=== PATIENT | female | born 1995 | race Caucasian/White ===

== ENCOUNTER 2021-04-25 07:06 | Inpatient (IN) | payer OTHER ==
[2021-04-25 07:57] VITALS: BMI 40.8
[2021-04-25] MEDS: Lactated Ringer's 1,000 ML IV SCH ×2 (08:10→09:57)
[2021-04-25] MEDS ORDERED: Butorphanol Tartrate 1 MG/ML VIAL SLOW IVP PRN (08:26)
[2021-04-25] MEDS ORDERED: hydrALAZINE 20 MG/ML VIAL SLOW IVP PRN ×3 (08:26→15:39)
[2021-04-25] MEDS ORDERED: Ondansetron PF 4 MG/2 ML Vial IVP PRN ×2 (08:26→15:38)
[2021-04-25] MEDS ORDERED: Lidocaine 1% (PF) 30 ML VIAL SC PRN (08:28)
[2021-04-25] MEDS ORDERED: Ibuprofen 800 MG TAB PO PRN (08:28)
[2021-04-25] MEDS ORDERED: HYDROcodone/Acetaminophen 5/325 mg Tablet PO PRN ×3 (08:28→15:38)
[2021-04-25] MEDS ORDERED: Butorphanol Tartrate 1 MG/ML VIAL ONE (08:29)
[2021-04-25] MEDS ORDERED: Lactated Ringer's 1,000 ML IV SCH (08:30)
[2021-04-25] MEDS ORDERED: NS w/ Oxytocin 30 units 500 ML IV SCH ×2 (08:30→15:45)
[2021-04-25] MEDS ORDERED: Fentanyl 2 mcg/Bup 0.1% Cadd 100 ML ONE (08:51)
[2021-04-25 08:56] LABS: Hemoglobin 11.5 g/dL (12.0-15.5); Mean Corpuscular HGB CONC 32.4 g/dL (32.0-36.0); Mean Corpuscular Hemoglobin 28.6 pg (27.0-33.0); Mean Corpuscular Volume 88.3 fl (81.6-98.3); Mean Platelet Volume 10.7 fl (7.4-10.4); Platelet Count 183 10x3/uL (150-450); RBC Distribution Width 13.7 % (11.5-14.5); Red Blood Cell (RBC) Count 4.02 10x6/uL (3.90-5.03); White Blood Cell (WBC) Count 10.3 10x3/uL (3.5-10.5)
[2021-04-25 09:28] LABS: Fetal Membranes Rupture RUPTURE DETECTED (No Rupture)
[2021-04-25 09:36] LABS: Hep B Surf Ag Non-Reactive S/CO (NonReactive); Syphilis Antibody Nonreactive (Nonreactive); Syphilis Antibody Index 0.04 S/CO (<1.00 Non-Reactive)
[2021-04-25 09:38] LABS: HBSAg Index 0.16 S/CO (0-0.99)
[2021-04-25] MEDS ORDERED: Methylergonovine 0.2 MG/ML VIAL ONE (11:50)
[2021-04-25] MEDS ORDERED: Misoprostol 200 MCG TAB ONE (11:50)
[2021-04-25] MEDS ORDERED: Carboprost 250 MCG/ML AMP ONE (11:50)
[2021-04-25] MEDS ORDERED: Bisacodyl 10 MG SUPP PR PRN ×2 (15:38→15:39)
[2021-04-25] MEDS ORDERED: Lanolin Ointment 7 GM TUBE TOP PRN (15:38)
[2021-04-25] MEDS ORDERED: Promethazine HCl 25 MG/ML VIAL IM PRN (15:38)
[2021-04-25] MEDS ORDERED: Boostrix 0.5 ML (Tdap) VIAL IM ONE (15:38)
[2021-04-25] MEDS ORDERED: diphenhydrAMINE 25 MG CAP PO PRN (15:38)
[2021-04-25] MEDS ORDERED: Misoprostol 200 MCG TAB VAG PRN (15:38)
[2021-04-25] MEDS ORDERED: Zolpidem Tartrate 5 MG TAB PO PRN (15:38)
[2021-04-25] MEDS ORDERED: Preparation H Ointment 28 GM TUBE PR PRN (15:38)
[2021-04-25] MEDS ORDERED: Benzocaine-Menthol 82.5 ML CAN TOP PRN (15:38)
[2021-04-25] MEDS ORDERED: Milk Of Magnesia 30 ML UDCUP PO PRN ×2 (15:38→15:39)
[2021-04-25] MEDS ORDERED: Ferrous Sulfate 325 MG TAB PO SCH (17:00)
[2021-04-25] MEDS ORDERED: Docusate Calcium (SURFAK) 240 MG CAP PO SCH (21:00)
[2021-04-25] MEDS: Ibuprofen 800 MG TAB PO SCH (22:08)
[2021-04-25] MEDS: Docusate Calcium (SURFAK) 240 MG CAP PO SCH (22:10)
[2021-04-26] MEDS: Ibuprofen 800 MG TAB PO SCH ×3 (06:32→23:05)
[2021-04-26 08:20] LABS: SARS-CoV-2 PCR by NAA Not Detected (NotDetected)
[2021-04-26] MEDS: Docusate Calcium (SURFAK) 240 MG CAP PO SCH ×2 (09:06→23:06)
[2021-04-26] MEDS: Prenatal Vitamin 1 TAB PO SCH (09:06)
[2021-04-26] MEDS: Ferrous Sulfate 325 MG TAB PO SCH (10:36)
[2021-04-27] MEDS: Ibuprofen 800 MG TAB PO SCH (05:34)
[2021-04-27] MEDS: Ferrous Sulfate 325 MG TAB PO SCH ×2 (07:44→08:40)
[2021-04-27 07:45] VITALS: BP 128/71; TEMP 99
[2021-04-27] MEDS: Prenatal Vitamin 1 TAB PO SCH (09:44)
[2021-04-27] MEDS: Docusate Calcium (SURFAK) 240 MG CAP PO SCH (09:44)
== END 2021-04-27 14:43 | disposition home or self-care (01) | DRG 807 ==
LOC: CSHLD/OP 07:06 → CSHLD 13:42 → CSHPED 18:40
PROVIDERS: ADMIT Obstetrics & Gynecology; ATTEND Obstetrics & Gynecology
PROC: 10E0XZZ Delivery of Products of Conception, External Approach (ICD-10-PCS; principal; 2021-04-25)
DX: O99.814 Abnormal glucose complicating childbirth (principal); Z37.0 Single live birth; Z3A.37 37 weeks gestation of pregnancy; O99.344 Other mental disorders complicating childbirth; F41.9 Anxiety disorder, unspecified; Z20.822 Contact with and (suspected) exposure to COVID-19
CPT/HCPCS: 36415; 51702; 84112; 85027; 86780; 86850; 86900; 86901; 87340; 99285; J0595; J2001; J2210; J2590; J3490; J7120; U0003; U0005

== ENCOUNTER 2022-09-30 14:24 | Inpatient (IN) | payer OTHER ==
[2022-09-30] MEDS ORDERED: hydrALAZINE 20 MG/ML VIAL SLOW IVP PRN (16:55)
[2022-09-30] MEDS ORDERED: Ondansetron PF 4 MG/2 ML Vial IVP PRN (16:55)
[2022-09-30] MEDS ORDERED: Lidocaine 1% (PF) 30 ML VIAL SC PRN (16:55)
[2022-09-30] MEDS ORDERED: Zolpidem Tartrate 5 MG TAB PO PRN (16:55)
[2022-09-30] MEDS ORDERED: Carboprost 250 MCG/ML AMP IM PRN (16:55)
[2022-09-30] MEDS ORDERED: Docusate 100 MG CAP PO PRN (16:55)
[2022-09-30] MEDS ORDERED: Ibuprofen 800 MG TAB PO PRN (16:55)
[2022-09-30] MEDS ORDERED: Acetaminophen 500 MG TAB PO PRN (16:55)
[2022-09-30] MEDS ORDERED: Diphenoxylate HCl/Atropine Tablet PO PRN ×2 (16:55)
[2022-09-30] MEDS ORDERED: Butorphanol Tartrate 1 MG/ML VIAL SLOW IVP PRN (16:55)
[2022-09-30] MEDS ORDERED: HYDROcodone/Acetaminophen 5/325 mg Tablet PO PRN ×2 (16:55)
[2022-09-30] MEDS ORDERED: Promethazine HCl 25 MG/ML VIAL IM PRN (16:55)
[2022-09-30] MEDS ORDERED: Lactated Ringer's 1,000 ML IV SCH (17:00)
[2022-09-30] MEDS ORDERED: NS w/ Oxytocin 30 units 500 ML IV SCH (17:00)
[2022-09-30 17:47] LABS: Hemoglobin 11.2 g/dL (12.0-15.5); Mean Corpuscular Hemoglobin 30.9 pg (27.0-33.0); Mean Corpuscular Volume 93.4 fl (81.6-98.3); Platelet Count 176 10x3/uL (150-450); RBC Distribution Width 16.7 % (11.5-14.5); Red Blood Cell (RBC) Count 3.63 10x6/uL (3.90-5.03); White Blood Cell (WBC) Count 10.3 10x3/uL (3.5-10.5)
[2022-09-30 18:20] LABS: HBSAg Index 0.17 S/CO (0-0.99); HIV (1/2) Antibody/Antigen Non-Reactive (NonReactive); HIV 1/2 INDEX 0.08 S/CO (<1.00); Hep B Surf Ag Non-Reactive S/CO (NonReactive)
[2022-09-30 18:21] LABS: Syphilis Antibody Nonreactive (Nonreactive); Syphilis Antibody Index 0.04 S/CO (<1.00 Non-Reactive)
[2022-09-30 18:57] VITALS: BMI 41.0
[2022-09-30 20:47] LABS: SARS-CoV-2 NAA Rapid Test Not Detected (NotDetected)
[2022-10-01] MEDS ORDERED: Fentanyl 2 mcg/Bup 0.1% Cadd 100 ML ONE (08:09)
[2022-10-01] MEDS ORDERED: Naloxone HCl 0.4 mg/ml Vial IVP PRN ×2 (08:44)
[2022-10-01] MEDS ORDERED: ePHEDrine Sulfate 50 MG/10 ML VIAL SLOW IVP PRN (08:44)
[2022-10-01] MEDS ORDERED: Ondansetron PF 4 MG/2 ML Vial IVP PRN ×2 (08:44→19:54)
[2022-10-01] MEDS ORDERED: Acetaminophen 325 MG TAB PO PRN (08:44)
[2022-10-01] MEDS ORDERED: Lactated Ringer's 500 ML IV PRN (08:44)
[2022-10-01] MEDS ORDERED: Moisturizing Cream (Eucerin) 113 GM JAR TOP PRN (08:44)
[2022-10-01] MEDS ORDERED: Promethazine HCl 25 MG/ML VIAL IM PRN (08:44)
[2022-10-01] MEDS ORDERED: diphenhydrAMINE 50 MG/ML VIAL IVP PRN (08:44)
[2022-10-01] MEDS ORDERED: Communication Order-Pharmacy FS SCH (08:45)
[2022-10-01] MEDS ORDERED: Fentanyl 2 mcg/Bupivacaine 0.1% Cassette 100 ML EPIDURAL SCH (08:45)
[2022-10-01] MEDS ORDERED: Bupivacaine HCl 0.5%/Epinephrine 1:200,000/PF 30 ml Vial ONE (13:00)
[2022-10-01] MEDS ORDERED: Bupivacaine 0.25% HCL 30 ML VIAL ONE (13:00)
[2022-10-01] MEDS ORDERED: diphenhydrAMINE 25 MG CAP PO PRN (19:54)
[2022-10-01] MEDS ORDERED: Preparation H Ointment 28 GM TUBE PR PRN (19:54)
[2022-10-01] MEDS ORDERED: Lanolin Ointment 7 GM TUBE TOP PRN (19:54)
[2022-10-01] MEDS ORDERED: Benzocaine-Menthol 82.5 ML CAN TOP PRN (19:54)
[2022-10-01] MEDS ORDERED: Misoprostol 200 MCG TAB VAG PRN (19:54)
[2022-10-01] MEDS ORDERED: Boostrix 0.5 ML (Tdap) VIAL (>/=7 yrs of age) IM ONE (19:54)
[2022-10-01] MEDS ORDERED: Zolpidem Tartrate 5 MG TAB PO PRN (19:54)
[2022-10-01] MEDS ORDERED: HYDROcodone/Acetaminophen 5/325 mg Tablet PO PRN ×2 (19:54)
[2022-10-01] MEDS ORDERED: hydrALAZINE 20 MG/ML VIAL SLOW IVP PRN (19:54)
[2022-10-01] MEDS ORDERED: Bisacodyl 10 MG SUPP PR PRN (19:54)
[2022-10-01] MEDS ORDERED: Milk Of Magnesia 30 ML UDCUP PO PRN (19:54)
[2022-10-01] MEDS: Docusate 100 MG CAP PO SCH (20:00)
[2022-10-01] MEDS ORDERED: NS w/ Oxytocin 30 units 500 ML IV SCH (20:00)
[2022-10-01] MEDS: Ibuprofen 800 MG TAB PO SCH (20:03)
[2022-10-02] MEDS: Ibuprofen 800 MG TAB PO SCH ×2 (04:09→14:38)
[2022-10-02 04:25] LABS: Hemoglobin 10.2 g/dL (12.0-15.5); Mean Corpuscular HGB CONC 33.1 g/dL (32.0-36.0); Mean Corpuscular Hemoglobin 30.8 pg (27.0-33.0); Mean Corpuscular Volume 93.1 fl (81.6-98.3); Mean Platelet Volume 9.9 fl (7.4-10.4); Platelet Count 164 10x3/uL (150-450); RBC Distribution Width 16.1 % (11.5-14.5); Red Blood Cell (RBC) Count 3.31 10x6/uL (3.90-5.03); White Blood Cell (WBC) Count 9.7 10x3/uL (3.5-10.5)
[2022-10-02] MEDS ORDERED: Ferrous Sulfate 325 MG TAB PO SCH (08:00)
[2022-10-02] MEDS: Docusate 100 MG CAP PO SCH (08:38)
[2022-10-02] MEDS ORDERED: Prenatal Vitamin 1 TAB PO SCH (09:00)
[2022-10-02 11:43] VITALS: BP 112/57; TEMP 98.2
== END 2022-10-02 16:15 | disposition home or self-care (01) | DRG 807 ==
LOC: CSHLD/OP 14:24 → CSHLD 18:35 → CSHPP 10-01 17:05
PROVIDERS: ADMIT Obstetrics & Gynecology; ATTEND Obstetrics & Gynecology
PROC: 10E0XZZ Delivery of Products of Conception, External Approach (ICD-10-PCS; principal; 2022-10-01)
PROC: 10907ZC Drainage of Amniotic Fluid, Therapeutic from Products of Conception, Via Natural or Artificial Opening (ICD-10-PCS; 2022-10-01)
DX: O99.344 Other mental disorders complicating childbirth (principal); Z37.0 Single live birth; Z3A.37 37 weeks gestation of pregnancy; Z20.822 Contact with and (suspected) exposure to COVID-19; F41.9 Anxiety disorder, unspecified; Z79.899 Other long term (current) drug therapy; O36.63X0 Maternal care for excessive fetal growth, third trimester, not applicable or unspecified
CPT/HCPCS: 51702; 85027; 86780; 86850; 86900; 86901; 87340; 87389; 99285; S0020; U0002